=== PATIENT | female | born 1945 | race Caucasian/White ===

== ENCOUNTER 2021-02-22 08:10 | Inpatient (IN) ==
[2021-02-22] MEDS ORDERED: IOPAMIDOL 100 ML BOTTLE IV ONE (08:11)
[2021-02-22] MEDS ORDERED: KETOROLAC 30 MG/ML VIAL IV ONE (08:24)
[2021-02-22] MEDS ORDERED: diphenhydrAMINE 50 MG/ML VIAL IV ONE (08:24)
[2021-02-22] MEDS ORDERED: PROCHLORPERAZINE 10 MG/2 ML VIAL IV ONE (08:24)
[2021-02-22] MEDS ORDERED: 0.9 % SODIUM CHLORIDE 1,000 ML IV ONE (08:24)
--- NOTE | 2021-02-22 08:31 | Emergency Department Note ---
Abdominal Pain HPI General Chief Complaint: Abdominal Pain Stated Complaint: Diverticulitis Time Seen by Provider: 02/22/21 08:14 Source: patient, family ( at bedside), RN notes reviewed and old records reviewed Mode of arrival: ambulatory Limitations: no limitations History of Present Illness HPI Narrative: Narrative: MD Complaint: abdominal pain Onset (ago): day(s) (4) Consistency: constant Location: LLQ Severity: moderate Quality: cramping and aching Radiation: none Migration to: no migration Improves with: nothing Worsens with: movement Context: other (Diverticulitis) Associated symptoms: Reports nausea, vomiting, fever, chills and anorexia; Denies diarrhea, constipation, dysuria, hematemesis, hematochezia, melena, hematuria and syncope Treatments prior to arrival: other (Cipro ) Related Data Home Medications Medication Instructions Recorded Confirmed calcium carbonate 500 mg calcium 500 mg PO QDAY tab 10/23/15 02/22/21 (1,250 mg) tablet cholecalciferol (vitamin D3) 25 1,000 unit PO QDAY 10/23/15 02/22/21 mcg (1,000 unit) capsule multivitamin 1 tab PO QDAY tab 10/23/15 02/22/21 apixaban [Eliquis] 5 mg PO BID 02/22/21 02/22/21 hydrochlorothiazide 25 mg PO PRN PRN 02/22/21 02/22/21 lisinopril 10 mg PO QDAY 02/22/21 02/22/21 metoprolol succinate 125 mg PO QDAY 02/22/21 02/22/21 rosuvastatin 5 mg PO QDAY 02/22/21 02/22/21 Previous Rx's Medication Instructions Recorded albuterol sulfate 8.5 gm IH Q4-6HP PRN #1 hfa.aer.ad 10/10/16 nitroglycerin 0.4 mg sublingual 0.4 mg SUBLINGUAL Q5M PRN #20 tab 12/25/16 tablet ciprofloxacin HCl [Cipro] 500 mg PO Q12H #20 tab 02/20/21 hydrocodone-acetaminophen 1 tab PO Q4H PRN #12 tab 02/20/21 metronidazole 500 mg PO Q12H 10 Days #20 tab 02/20/21 ondansetron 4 mg PO Q6H PRN #12 tab 02/20/21 Allergies Allergy/AdvReac Type Severity Reaction Status Date / Time atenolol Allergy Unknown Unknown Verified 02/22/21 08:10 atorvastatin [From Lipitor] Allergy Unknown Rash Verified 02/22/21 08:10 Dicloxacillin Allergy Unknown Gastrointestinal Verified 02/22/21 08:10 Upset fluvastatin [From Lescol] Allergy Unknown Rash Verified 02/22/21 08:10 isosorbide [From Imdur] Allergy Unknown Headache Verified 02/22/21 08:10 morphine [MORPHINE] Allergy Unknown RASH Verified 02/22/21 08:10 simvastatin [From Zocor] Allergy Unknown Rash Verified 02/22/21 08:10 Vknegnv-VFZ-VfQ Reductase Allergy Unknown Rash Verified 02/22/21 08:10 Inhibitor [Hxaaxju-Xfk-Dbs Reductase Inhibitor] sucralfate [From Carafate] Allergy Unknown Hives Verified 02/22/21 08:10 codeine AdvReac Unknown Other Verified 02/22/21 08:10 nitro transdermal Allergy Unknown Headache Uncoded 12/25/16 08:52 Review of Systems ROS ROS Narrative: Narrative: All systems ED: reviewed and negative except as stated. PFSH Narrative Patient History Narrative: Narrative: Medical/Surgical/Family History All Active Problems (Updated 02/22/21 @ 16:06 by Lcuho Max MD) Abdominal pain (Acute) Diverticulitis (Acute) Diverticulitis (Acute) Nausea & vomiting (Acute) Erythema (Acute) Insect bite (Acute) Cellulitis (Acute) Bronchitis (Acute) Encounter for Health Maintenance Examination in Adult (Chronic) Intermittent abdominal pain (Chronic) Hypercalcemia (Acute) Acute bronchitis (Acute) Upper respiratory infection (Acute) History of hysterectomy (Chronic) History of foot surgery (Chronic) History of esophagogastroduodenoscopy (Chronic 05/26/14) History of coronary artery bypass graft (Chronic) History of colonoscopy (Chronic 04/20/14) History of breast augmentation (Chronic) Weight loss (Chronic) History of tobacco use (Chronic) Tinnitus (Chronic) Ovarian cyst (Chronic) Osteoporosis (Chronic) Low back pain (Chronic) Leg pain (Chronic) Chronic ischemic heart disease (Chronic) Irritable bowel syndrome (Chronic) Hypertension (Chronic) Hyperlipidemia (Chronic) Hormone replacement therapy (Chronic) Headache (Chronic) Gastroesophageal reflux (Chronic 10/17/13) Fracture of metatarsal bone (Chronic 10/07/13) Esophagitis (Chronic) Edema (Chronic) Diverticulosis of colon (Chronic 04/20/14) Coronary artery disease (Chronic) Colon polyps (Chronic) Status of breast implant (Chronic) Asthma (Chronic) Angina pectoris (Chronic) Abnormal mammogram (Chronic) Abdominal pain (Chronic) Contusion (Chronic) Medical History Abdominal pain Evaluation for atypical abdominal pain with normal US and EGD in 07/2010; updated abdominopelvic CT 11/2011 showing benign right ovary cyst and liver granuloma Abnormal mammogram Silicone breast implants with revision in 2004. Abnormal exam on the right suggesting leakage; in need of surgical review. Acute bronchitis Angina pectoris (04/10/14-Dr Carpenter) Asthma Hx of childhood asthma Cellulitis Chronic ischemic heart disease Original internal mammary implant; coronary bypass in 1998. Last major interaction in 02/2011 with stress echo which was normal; last visit with Dr. Carpenter in 02/2012. 02/25/13 normal Stress Echo--Dr. Carpenter. Colon polyps Colonoscopy 10/2004 showing hyperplastic polyp. 10 year sequencing. Contusion Coronary artery disease (04/10/14-Dr Carpenter) Diverticulosis of colon (04/20/14) Dr. Robin Edema Mild; stable on current medication Erythema Esophagitis Component of esophageal spasm; updated EGD 07/2010 showing hiatal hernia and mild esophagitis. Fracture of metatarsal bone (10/07/13) Mildly displaced of the right fifth Gastroesophageal reflux (10/17/13) (07/12/14-[facility]) Headache Vague atypical frontal/temporal headache; check sed rate 07/2012. History of tobacco use Distant ex-smoker; not requiring routine screening. Hormone replacement therapy S/P hysterectomy; ovaries remain, bimanual negative. Patient feels that she needs to maintain ERT. Hypercalcemia Hyperlipidemia Stable on diet; multiple medicine intolerance (statins). Hypertension Mild; stable on current medication. Insect bite Intermittent abdominal pain Irritable bowel syndrome Mild. Updated EGD 07/2010 showing hiatal hernia and mild esophagitis. Leg pain Extensive evaluation for bilateral leg pain in 2005 Low back pain (05/15/2014-Dr Moore) Osteoporosis By bone density; Last screened in 06/2010. Stable Vitamin D level. Plans for IV Boniva. Ovarian cyst Abdominopelvic CT 11/2011 showed benign right ovarian cyst and liver granuloma. Status of breast implant Silicone breast implants with revision in 2004; no mammogram secondary to location of the prosthesis. Abnormal exam 07/2012 on right suggesting leakage, in need of surgical review. Tinnitus Evaluation for pulsatile tinnitus including imaging in 1999 Upper respiratory infection w/ sinusitis/bronchitis [facility] Surgical History History of breast augmentation 2004 Bilateral (07/12/14-[facility]) History of colonoscopy (04/20/14) 04/20/2014: Dr. Robin: Diverticulosis 2004--Hyperplastic polyp and cauterized colonic mucosa. No adenoma. 10 year sequence. History of coronary artery bypass graft 1998 History of esophagogastroduodenoscopy (05/26/14) Dr. Robin: See path report History of foot surgery Neuroma on foot History of hysterectomy ovaries remain; estrogen replacement therapy. Family History Unknown No pertinent family history Social History Smoking Status: Former smoker Alcohol Intake Frequency: a few times a week Substance Use: does not use Exam Narrative Narrative: Narrative: 75-year-old female complaining of abdominal pain. Patient was seen on 02/20 and diagnosed with diverticulitis with a abscess from abdominal CT scan. Received I V fluids pain medicines and placed on Cipro and Flagyl. Patient was seen again yesterday for similar complaints with IV pain medicines and IV fluids. Dr. Poole was consulted at this time. Patient was to follow-up as an outpatient. Patient is having increasing pain is greatest in her left lower quadrant with nausea and vomiting throwing up her antibiotics and pain medicines. Complains of low-grade fevers chills nausea vomiting and abdominal pain. Denies any hematemesis or coffee-ground emesis denies any hematuria dysuria or frequency denies any bright red blood per rectum black tarry stools or diarrhea. Her last meal was at 330-day prior to arrival. Her nausea and vomiting is too many times to count in the last 24 hours. General Limitations: no limitations General appearance: Present alert and in no apparent distress Head Head: Present atraumatic and normocephalic Eye Eye: Present normal appearance, PERRL and EOMI ENT ENT: Present normal exam and mucous membranes moist Neck Neck: Present normal inspection and full ROM Chest Chest: Present normal inspection; Absent tenderness Respiratory Respiratory: Present normal lung sounds bilaterally; Absent respiratory distress Cardiovascular Cardiovascular: Present regular rate and normal rhythm; Absent systolic murmur Adbominal Abdominal: Present soft, tenderness, diminished bowel sounds, bruit and scar; Absent distention, guarding, rebound, rigidity, trauma, Urban's sign, tenderness at McBurney's Point, ascites, mass, pulsatile mass and hernia Extremities Extremities: Present normal inspection and full ROM; Absent tenderness, pedal edema and pretibial edema Back Back: Present normal inspection; Absent CVA tenderness (R) and CVA tenderness (L) Neurological Neurological: Present alert and oriented X3 Psychiatric Psychiatric: Present normal affect and normal mood Skin Skin: Present warm (WNL); Absent rash Course Vital Signs Vital signs: Vital Signs Temperature 97.1 F 02/22/21 08:10 Pulse Rate 78 02/22/21 08:10 Respiratory Rate 16 02/22/21 08:10 Blood Pressure 132/58 02/22/21 08:10 Pulse Oximetry (%) 100 02/22/21 08:10 Temperature 97.1 F 02/22/21 08:10 Pulse Rate 65 02/22/21 16:00 Respiratory Rate 16 02/22/21 08:10 Blood Pressure 111/57 02/22/21 16:00 Pulse Oximetry (%) 95 02/22/21 16:00 [facility] Narrative Medical decision making narrative: Narrative: Patient received IV fluids and IV pain medicines. White count is normal lipase is marginally elevated anion gap is elevated. Patient responded well to IV pain medicines and IV fluids. Differential Diagnosis Differential Diagnosis: Diverticulitis diverticular abscess large bowel obstruction small bowel obs Medical Records Medical records reviewed: Yes I reviewed the patient's medical records. Lab Data Lab results reviewed: Yes I reviewed the patient's lab results. Lab results narrative: Elevated lipase and elevated anion gap normal white count electrolytes BUN/creatinine and LFTs Result diagrams: 02/22/21 08:36 02/22/21 08:36 Labs: Lab Results 02/22/21 02/22/21 02/22/21 Range/Units 08:32 08:36 08:36 WBC 9.0 (4.5-11.0) K/mcL RBC 3.89 (3.59-5.38) M/mcL Hgb 11.9 (11.2-15.7) g/dL Hct 34.8 (34.1-44.9) % MCV 89.5 (80.0-100.0) fL MCH 30.6 (26.0-34.0) pg MCHC 34.2 (31.0-36.0) g/dL RDW 11.5 (11.5-14.5) % Plt Count 270 (140-440) K/mcL MPV 10.0 (7.4-10.4) fL Neut % (Auto) 83.2 H (38.0-78.0) % Lymph % (Auto) 11.6 L (15.5-49.0) % [place] % (Auto) 4.7 (1.0-12.0) % Eos % (Auto) 0.3 (0.0-7.0) % Baso % (Auto) 0.2 (0.0-2.0) % Lymph # (Auto) 1.04 L (1.50-4.80) K/mcL [place] # (Auto) 0.42 (0.10-0.90) K/mcL Eos # (Auto) 0.03 (0.00-0.70) K/mcL Baso # (Auto) 0.02 (0.00-0.30) K/mcL Absolute Neutrophils 7.44 (1.80-8.00) K/mcL VBG Lactic Acid (0.5-2.0) mmol/L Sodium 138 (133-145) mmol/L Potassium 4.1 (3.3-5.1) mmol/L Chloride 100 (96-108) mmol/L Carbon Dioxide 20 L (22-30) mmol/L Anion Gap 18.0 H (8.0-16.0) BUN 17 (8-23) mg/dL Creatinine 0.7 (0.6-1.1) mg/dL POC Creatinine 0.7 (0.6-1.2) mg/dL GFR Calculation 83 Glucose 100 (70-105) mg/dL Calcium 9.7 (8.6-10.4) mg/dL Total Bilirubin 0.6 (0.1-1.0) mg/dL AST 16 (<32) U/L ALT 8 (<40) U/L Alkaline Phosphatase 65 (39-117) U/L Troponin T < 0.01 (<0.03) ng/mL Total Protein 6.4 (5.9-8.4) gm/dL Albumin 3.7 (3.2-5.2) gm/dL Globulin 2.7 (2.2-3.7) gm/dL Albumin/Globulin Ratio 1.4 (1.0-2.3) Lipase 97 H (7-60) U/L 02/22/21 Range/Units 08:36 WBC (4.5-11.0) K/mcL RBC (3.59-5.38) M/mcL Hgb (11.2-15.7) g/dL Hct (34.1-44.9) % MCV (80.0-100.0) fL MCH (26.0-34.0) pg MCHC (31.0-36.0) g/dL RDW (11.5-14.5) % Plt Count (140-440) K/mcL MPV (7.4-10.4) fL Neut % (Auto) (38.0-78.0) % Lymph % (Auto) (15.5-49.0) % [place] % (Auto) (1.0-12.0) % Eos % (Auto) (0.0-7.0) % Baso % (Auto) (0.0-2.0) % Lymph # (Auto) (1.50-4.80) K/mcL [place] # (Auto) (0.10-0.90) K/mcL Eos # (Auto) (0.00-0.70) K/mcL Baso # (Auto) (0.00-0.30) K/mcL Absolute Neutrophils (1.80-8.00) K/mcL VBG Lactic Acid 1.5 (0.5-2.0) mmol/L Sodium (133-145) mmol/L Potassium (3.3-5.1) mmol/L Chloride (96-108) mmol/L Carbon Dioxide (22-30) mmol/L Anion Gap (8.0-16.0) BUN (8-23) mg/dL Creatinine (0.6-1.1) mg/dL POC Creatinine (0.6-1.2) mg/dL GFR Calculation Glucose (70-105) mg/dL Calcium (8.6-10.4) mg/dL Total Bilirubin (0.1-1.0) mg/dL AST (<32) U/L ALT (<40) U/L Alkaline Phosphatase (39-117) U/L Troponin T (<0.03) ng/mL Total Protein (5.9-8.4) gm/dL Albumin (3.2-5.2) gm/dL Globulin (2.2-3.7) gm/dL Albumin/Globulin Ratio (1.0-2.3) Lipase (7-60) U/L ED POC Tests ED POC Tests: ARON - SARS Antigen Negative Radiology Data Radiology results reviewed: Yes I reviewed the patient's radiology results. Radiology results narrative: IMPRESSION: 1. Sigmoid diverticulitis. No evidence of abscess. 2. Moderate ileus with moderate colonic stool. 3. 3.5 cm simple cyst right ovary-stable since 2015. 4. Mild wall thickening distal esophagus suggesting peptic disease or other infiltrative process. Interpreted and Authenticated by: Arnaldo Brady 02/22/21 EKG Data EKG #1: EKG attestation: Yes I reviewed and interpreted this EKG. and Yes There are no EKG findings of acute coronary syndrome EKG shows normal: sinus rhythm Rate: normal (62) Rhythm: NSR [place]/QRS: normal Interpretation: nonspecific ST-T wave changes Pulse Oximetry Data Pulse Ox %: 95 Interpretation: 95% on room air is within normal Discharge Plan Patient/Caregiver Discharge Instructions Pt seen by CONDITIONER TUMBLER/PA only: No Clinical Impression: Diverticulitis, Chronic ischemic heart disease Nausea & vomiting Qualifiers: Vomiting type: unspecified Vomiting Intractability: unspecified Qualified Code(s): R11.2 - Nausea with vomiting, unspecified Patient Disposition: Xfer As Inpt ([facility]) Follow up with: Julia Gupta MD [Primary Care Provider] - Prescriptions: No Action multivitamin tablet 1 tab PO QDAY RF: 0 calcium carbonate [Calcium 500] 500 mg calcium (1,250 mg) tablet 500 mg PO QDAY RF: 0 cholecalciferol (vitamin D3) 1,000 unit capsule 1,000 unit PO QDAY RF: 0 nitroglycerin 0.4 MG tablet, sublingual 0.4 mg SUBLINGUAL Q5M PRN (Reason: Chest Pain) Qty: 20 RF: 3 albuterol sulfate 8.5 GM HFA aerosol inhaler 8.5 gm IH Q4-6HP PRN (Reason: Cough) Qty: 1 RF: 0 ciprofloxacin HCl [Cipro] 500 mg tablet 500 mg PO Q12H Qty: 20 RF: 0 metronidazole 500 mg tablet 500 mg PO Q12H 10 Days Qty: 20 RF: 0 ondansetron 4 mg tablet,disintegrating 4 mg PO Q6H PRN (Reason: nausea and vomiting) Qty: 12 RF: 0 hydrocodone-acetaminophen 5-325 mg tablet 1 tab PO Q4H PRN (Reason: pain) Qty: 12 RF: 0 Eliquis 5 mg Tablet 5 mg PO BID RF: 0 metoprolol succinate 100 mg Tablet Extended Release 24 Hr 125 mg PO QDAY RF: 0 lisinopril 10 mg Tablet 10 mg PO QDAY RF: 0 hydrochlorothiazide 25 mg Tablet 25 mg PO PRN PRN (Reason: swelling) RF: 0 rosuvastatin 5 mg Tablet 5 mg PO QDAY RF: 0
--- NOTE | 2021-02-22 09:02 | EKG ---
[facility] Test Date: 2021-02-22 Pat Name: Holly Beth Department: ED Room: Gender: Female Cafe Attendant: [facility] : 1945 Requested By: Lucho Max Order Number: [id number] Reading MD: Arnaldo Wall M.D. Measurements Intervals [place] Rate: 62 P: 76 [place]: 160 QRS: 85 QRSD: 78 T: 68 QT: 452 QTc: 459 Interpretive Statements SINUS RHYTHM BORDERLINE RIGHT AXIS DEVIATION BORDERLINE T ABNORMALITIES, ANT-LAT LEADS Electronically Signed On 02-22-2021 9:02:33 PDT by Arnaldo Wall M.D. /store/[email or web address]/[id number]
[2021-02-22 09:04] LABS: POC Creatinine 0.7 mg/dL (0.6-1.2)
[2021-02-22 09:49] LABS: Basophils # (Auto) 0.02 K/mcL (0.00-0.30); Basophils % (Auto) 0.2 % (0.0-2.0); Eosinophils # (Auto) 0.03 K/mcL (0.00-0.70); Eosinophils % (Auto) 0.3 % (0.0-7.0); Hematocrit 34.8 % (34.1-44.9); Hemoglobin 11.9 g/dL (11.2-15.7); Lymphocytes # (Auto) 1.04 K/mcL (1.50-4.80); Lymphocytes % (Auto) 11.6 % (15.5-49.0); Mean Cell Volume 89.5 fL (80.0-100.0); Mean Corpuscular HGB Conc 34.2 g/dL (31.0-36.0); Monocytes # (Auto) 0.42 K/mcL (0.10-0.90); Monocytes % (Auto) 4.7 % (1.0-12.0); Neutrophils % (Auto) 83.2 % (38.0-78.0); Platelet Count 270 K/mcL (140-440); RBC 3.89 M/mcL (3.59-5.38); Red Cell Distribution Width 11.5 % (11.5-14.5)
[2021-02-22 10:15] LABS: ALT/SGPT 8 U/L (<40); AST/SGOT 16 U/L (<32); Albumin 3.7 gm/dL (3.2-5.2); Albumin/Globulin Ratio 1.4 (1.0-2.3); Alkaline Phosphatase 65 U/L (39-117); Bilirubin,Total 0.6 mg/dL (0.1-1.0); Blood Urea Nitrogen 17 mg/dL (8-23); Calcium 9.7 mg/dL (8.6-10.4); Carbon Dioxide 20 mmol/L (22-30); Chloride 100 mmol/L (96-108); Globulin 2.7 gm/dL (2.2-3.7); Glomerular Filtration Rate 83; Glucose 100 mg/dL (70-105)
--- NOTE | 2021-02-22 15:40 | Cat Scan Report ---
CLINICAL INFORMATION: Left lower quadrant pain. History of diverticulitis COMPARISON: Abdomen and pelvic CT 02/20/2021 TECHNIQUE: Following enteric contrast, 80 cc of Isovue-370 were injected intravenously, and 60 seconds later, 0.625 mm helical slices were obtained from the mid heart through the subtrochanteric regions. Following reconstruction, 2.5 mm sagittal, coronal and axial reformatted images were processed and reviewed at bone, lung and soft tissue windows. Five minutes later, 0.625 mm helical slices were obtained from the mid heart through the kidneys and viewed at soft tissue windows.The exam was performed using radiation dose optimization techniques including, but not limited to, automated exposure control, adjustment of the mA and/or kV according to patient size and use of iterative reconstruction technique. FINDINGS: Lung bases to minor scarring in the medial and anterior basilar segment left lower lobe lobe. No effusions. The visualized heart is moderately enlarged. Mild wall thickening distal esophagus suggesting peptic disease or other infiltrative process Abdominal images show minimal fatty change within the liver which are stable. 9 mm densely calcified granulomas subdiaphragmatic right hepatic lobe is unchanged from 2016. No significant hepatic lesion. The gallbladder is normal. Common bile duct is mildly dilated-8 mm with smooth tapering near the ampullary region. Focal ectasia of [place] pancreatic duct duct, in the inferior pancreatic head, is unchanged. Santorini pancreatic duct is slightly dilated 3 mm but is stable since 2016. Pancreatic parenchyma is otherwise normal. Both kidneys, adrenalglands, spleen are normal. The aorta is normal diameter with moderate fibrofatty calcific plaque. Celiac SMA BRI renal iliac arteries are normal in caliber Pelvic images show hysterectomy changes. A 3.5 cm simple cyst, in the right ovary, is unchanged. Severe diverticulitis is seen in the distal 10 cm of the sigmoid colon unchanged. Today's examination was repeated following additional enteric contrast and delayed images through the pelvis. This was performed to better assess a possible and abscess the anterior wall of the distal sigmoid colon. In this region, there is a 3.6 cm area of marked eccentric plain wall thickening surrounds an inflamed giant diverticulum. There is no definite evidence of abscess in this area The remaining colon small bowel and large bowel show mild symmetric dilatation patible with moderate ileus. Mild concentric wall thickening of the gastric antrum is unchanged from 2016 and presumably insignificant.. There is no free air, free fluid or adenopathy. Bone windows show no osseous abnormality. IMPRESSION: 1. Sigmoid diverticulitis. No evidence of abscess. 2. Moderate ileus with moderate colonic stool. 3. 3.5 cm simple cyst right ovary-stable since 2016. 4. Mild wall thickening distal esophagus suggesting peptic disease or other infiltrative process. Interpreted and Authenticated by: Arnaldo Brady 02/22/21
[2021-02-22] MEDS ORDERED: CIPROFLOXACIN 400 MG/200 ML BAG IV ONE (15:51)
[2021-02-22] MEDS ORDERED: metroNIDAZOLE 500 MG/100 ML BAG IV ONE (15:51)
--- NOTE | 2021-02-22 17:09 | Internal Med History&Physical ---
HPI History of Present Illness Patient information: Note initiated : 02/22/21 at 5:03 pm Service Date, if different from initiated Date: [] Patient: Holly Beth a 75 y/o F admitted on for Diverticulitis. Chief Complaint: [] History of present illness: Ms. Beth is a 75 year old F Presents the ED with sharp abdominal pain lower quadrants especially left as well as nausea vomiting. And bloody stool. Patient came to hospital several days ago for the same symptoms found have an abscess on CT. Case discussed with surgeon who directed ER to provide antibiotics and to follow-up with him in the office. She is seem to be doing well until today when she developed bloody stool again nausea vomiting sharp abdominal pain. She has not been able to keep her Cipro and Flagyl down. Dr. Poole was contacted. Review of Systems: Pertinent positives as above. Denies headache/fever/chills/chest pain/cough/dyspnea. Remaining 10 point review of system reviewed negative PFSH PFSH All Active Problems (Updated 02/22/21 @ 16:06 by Lucho Max MD) Abdominal pain (Acute) Diverticulitis (Acute) Diverticulitis (Acute) Nausea & vomiting (Acute) Erythema (Acute) Insect bite (Acute) Cellulitis (Acute) Bronchitis (Acute) Encounter for Health Maintenance Examination in Adult (Chronic) Intermittent abdominal pain (Chronic) Hypercalcemia (Acute) Acute bronchitis (Acute) Upper respiratory infection (Acute) History of hysterectomy (Chronic) History of foot surgery (Chronic) History of esophagogastroduodenoscopy (Chronic 05/26/14) History of coronary artery bypass graft (Chronic) History of colonoscopy (Chronic 04/20/14) History of breast augmentation (Chronic) Weight loss (Chronic) History of tobacco use (Chronic) Tinnitus (Chronic) Ovarian cyst (Chronic) Osteoporosis (Chronic) Low back pain (Chronic) Leg pain (Chronic) Chronic ischemic heart disease (Chronic) Irritable bowel syndrome (Chronic) Hypertension (Chronic) Hyperlipidemia (Chronic) Hormone replacement therapy (Chronic) Headache (Chronic) Gastroesophageal reflux (Chronic 10/17/13) Fracture of metatarsal bone (Chronic 10/07/13) Esophagitis (Chronic) Edema (Chronic) Diverticulosis of colon (Chronic 04/20/14) Coronary artery disease (Chronic) Colon polyps (Chronic) Status of breast implant (Chronic) Asthma (Chronic) Angina pectoris (Chronic) Abnormal mammogram (Chronic) Abdominal pain (Chronic) Contusion (Chronic) Medical History Abdominal pain Evaluation for atypical abdominal pain with normal US and EGD in 07/2010; updated abdominopelvic CT 11/2011 showing benign right ovary cyst and liver granuloma Abnormal mammogram Silicone breast implants with revision in 2004. Abnormal exam on the right suggesting leakage; in need of surgical review. Acute bronchitis Angina pectoris (04/10/14-Dr Carpenter) Asthma Hx of childhood asthma Cellulitis Chronic ischemic heart disease Original internal mammary implant; coronary bypass in 1998. Last major interaction in 02/2011 with stress echo which was normal; last visit with Dr. Carpenter in 02/2012. 02/25/13 normal Stress Echo--Dr. Carpenter. Colon polyps Colonoscopy 10/2004 showing hyperplastic polyp. 10 year sequencing. Contusion Coronary artery disease (04/10/14-Dr Carpenter) Diverticulosis of colon (04/20/14) Dr. Robin Edema Mild; stable on current medication Erythema Esophagitis Component of esophageal spasm; updated EGD 07/2010 showing hiatal hernia and mild esophagitis. Fracture of metatarsal bone (10/07/13) Mildly displaced of the right fifth Gastroesophageal reflux (10/17/13) (07/12/14-[facility]) Headache Vague atypical frontal/temporal headache; check sed rate 07/2012. History of tobacco use Distant ex-smoker; not requiring routine screening. Hormone replacement therapy S/P hysterectomy; ovaries remain, bimanual negative. Patient feels that she needs to maintain ERT. Hypercalcemia Hyperlipidemia Stable on diet; multiple medicine intolerance (statins). Hypertension Mild; stable on current medication. Insect bite Intermittent abdominal pain Irritable bowel syndrome Mild. Updated EGD 07/2010 showing hiatal hernia and mild esophagitis. Leg pain Extensive evaluation for bilateral leg pain in 2005 Low back pain (05/15/2014-Dr Moore) Osteoporosis By bone density; Last screened in 06/2010. Stable Vitamin D level. Plans for IV Boniva. Ovarian cyst Abdominopelvic CT 11/2011 showed benign right ovarian cyst and liver granuloma. Status of breast implant Silicone breast implants with revision in 2004; no mammogram secondary to location of the prosthesis. Abnormal exam 07/2012 on right suggesting leakage, in need of surgical review. Tinnitus Evaluation for pulsatile tinnitus including imaging in 1999 Upper respiratory infection w/ sinusitis/bronchitis Weight loss (07/12/14-[facility]) Surgical History History of breast augmentation 2004 Bilateral (07/12/14-[facility]) History of colonoscopy (04/20/14) 04/20/2014: Dr. Robin: Diverticulosis 2004--Hyperplastic polyp and cauterized colonic mucosa. No adenoma. 10 year sequence. History of coronary artery bypass graft 1998 History of esophagogastroduodenoscopy (05/26/14) Dr. Robin: See path report History of foot surgery Neuroma on foot History of hysterectomy ovaries remain; estrogen replacement therapy. Family History Unknown No pertinent family history Social History household members: spouse housing: house lives independently: Yes marital status: occupational status: retired alcohol intake frequency: a few times a week substance use type: does not use MEDS/ALLERGIES Home Medications and Allergies Home Medications Medication Instructions Recorded Confirmed Type calcium carbonate 500 mg calcium 500 mg PO QDAY tab 10/23/15 02/22/21 History (1,250 mg) tablet cholecalciferol (vitamin D3) 25 1,000 unit PO QDAY 10/23/15 02/22/21 History mcg (1,000 unit) capsule multivitamin 1 tab PO QDAY tab 10/23/15 02/22/21 History albuterol sulfate 8.5 gm IH Q4-6HP PRN #1 hfa.aer.ad 10/10/16 02/22/21 Rx nitroglycerin 0.4 mg sublingual 0.4 mg SUBLINGUAL Q5M PRN #20 tab 12/25/16 02/22/21 Rx tablet ciprofloxacin HCl [Cipro] 500 mg PO Q12H #20 tab 02/20/21 02/22/21 Rx hydrocodone-acetaminophen 1 tab PO Q4H PRN #12 tab 02/20/21 02/22/21 Rx metronidazole 500 mg PO Q12H 10 Days #20 tab 02/20/21 02/22/21 Rx ondansetron 4 mg PO Q6H PRN #12 tab 02/20/21 02/22/21 Rx apixaban [Eliquis] 5 mg PO BID 02/22/21 02/22/21 History hydrochlorothiazide 25 mg PO PRN PRN 02/22/21 02/22/21 History lisinopril 10 mg PO QDAY 02/22/21 02/22/21 History metoprolol succinate 125 mg PO QDAY 02/22/21 02/22/21 History rosuvastatin 5 mg PO QDAY 02/22/21 02/22/21 History Allergies Allergy/AdvReac Type Severity Reaction Status Date / Time atenolol Allergy Unknown Unknown Verified 02/22/21 08:10 atorvastatin [From Lipitor] Allergy Unknown Rash Verified 02/22/21 08:10 Dicloxacillin Allergy Unknown Gastrointestinal Verified 02/22/21 08:10 Upset fluvastatin [From Lescol] Allergy Unknown Rash Verified 02/22/21 08:10 isosorbide [From Imdur] Allergy Unknown Headache Verified 02/22/21 08:10 morphine [MORPHINE] Allergy Unknown RASH Verified 02/22/21 08:10 simvastatin [From Zocor] Allergy Unknown Rash Verified 02/22/21 08:10 Oocfjnz-EOG-ZhD Reductase Allergy Unknown Rash Verified 02/22/21 08:10 Inhibitor [Ttdnsvl-Aig-Hcn Reductase Inhibitor] sucralfate [From Carafate] Allergy Unknown Hives Verified 02/22/21 08:10 codeine AdvReac Unknown Other Verified 02/22/21 08:10 nitro transdermal Allergy Unknown Headache Uncoded 12/25/16 08:52 EXAM Constitutional Vitals: Temp Pulse Resp BP Pulse Ox 97.1 F 65 16 111/57 95 02/22/21 08:10 02/22/21 16:00 02/22/21 08:10 02/22/21 16:00 02/22/21 16:00 Exam: General: Alert, Awake, No acute Distress Eyes/N/T: EOMI, PERRL, Head/Neck: neck supple, normocephalic atraumatic CV: RRR, No murmurs, normal s1/s2 Pulm: Clear b/l, no wheezing/rhonchi/rales Abd: soft, TTP LLQ, +BS x4 Ext: no clubbing/cyanosis/edema Neuro: Alert, no focal deficits, moves all extremities, CN 2-12 grossly intact, symmetrical strength b/l upper/lower, sensations intact b/l upper/lower Skin: warm/dry DATA Data Completed and Pending Labs: Labs from last 24 hours 02/22/21 02/22/21 02/22/21 08:36 08:36 08:36 WBC 9.0 RBC 3.89 Hgb 11.9 Hct 34.8 MCV 89.5 MCH 30.6 MCHC 34.2 RDW 11.5 Plt Count 270 MPV 10.0 Neut % (Auto) 83.2 H Lymph % (Auto) 11.6 L Meade % (Auto) 4.7 Eos % (Auto) 0.3 Baso % (Auto) 0.2 Lymph # (Auto) 1.04 L Meade # (Auto) 0.42 Eos # (Auto) 0.03 Baso # (Auto) 0.02 Absolute Neutrophils 7.44 VBG Lactic Acid 1.5 Sodium 138 Potassium 4.1 Chloride 100 Carbon Dioxide 20 L Anion Gap 18.0 H BUN 17 Creatinine 0.7 POC Creatinine 0.7 GFR Calculation 83 Glucose 100 Calcium 9.7 Total Bilirubin 0.6 AST 16 ALT 8 Alkaline Phosphatase 65 Troponin T Total Protein 6.4 Albumin 3.7 Globulin 2.7 Albumin/Globulin Ratio 1.4 Lipase 97 H 02/22/21 08:32 WBC RBC Hgb Hct MCV MCH MCHC RDW Plt Count MPV Neut % (Auto) Lymph % (Auto) Meade % (Auto) Eos % (Auto) Baso % (Auto) Lymph # (Auto) Meade # (Auto) Eos # (Auto) Baso # (Auto) Absolute Neutrophils VBG Lactic Acid Sodium Potassium Chloride Carbon Dioxide Anion Gap BUN Creatinine POC Creatinine GFR Calculation Glucose Calcium Total Bilirubin AST ALT Alkaline Phosphatase Troponin T < 0.01 Total Protein Albumin Globulin Albumin/Globulin Ratio Lipase A/P Narrative A/P Narrative: A: *Acute diverticulitis: *h/o CAD w/cabg: *PAF: on eliquis/BB *HTN/HLD: P: -Dr. Poole following -IV Abx -Clear liquid, IVF -pain control/antiemetics -cont BB/ACEI, hold hctz - -ppx: heparin (hold Eliquis until seen by surgeon) Time Spent With Patient Time: Total time spent is greater than 50% in coordination of care (as documented) at patient's floor/unit and/or counseling patient:
--- NOTE | 2021-02-22 17:19 | General Surgery Consult Note ---
HPI Data of Consult Patient: new to practice Consult date: 02/22/21 Primary Care Provider: Julia Gupta Consult Narrative History of present illness: This is a pleasant 75-year-old female who presents to the emergency department 2 days ago with history of left lower quadrant abdominal pain. She was seen and evaluated emergency room diagnosed with diverticulitis, she had normal white count no fevers chills nausea or vomiting. She was placed on oral antibiotics and sent home. She represented the next day because her primary care doc was worried about the findings on the CT scan, reevaluation showed a normal white count afebrile with no nausea or vomiting. She represents today secondary to nausea with emesis and unable to tolerate p.o. intake. Upon reevaluation the emergency room repeat CT scan shows that the colitis, no evidence of perforation or abscess. She has nausea with emesis she has no fevers or chills. She reports that her abdominal pain feels better than it did 2 days ago minus the nausea. I was asked to reevaluate the patient for possible surgical intervention. cc:: CC: Review of Systems Review of systems: All systems are reviewed negative other than above PFSH PFSH All Active Problems Abdominal pain (Acute) Diverticulitis (Acute) Diverticulitis (Acute) Nausea & vomiting (Acute) Erythema (Acute) Insect bite (Acute) Cellulitis (Acute) Bronchitis (Acute) Encounter for Health Maintenance Examination in Adult (Chronic) Intermittent abdominal pain (Chronic) Hypercalcemia (Acute) Acute bronchitis (Acute) Upper respiratory infection (Acute) History of hysterectomy (Chronic) History of foot surgery (Chronic) History of esophagogastroduodenoscopy (Chronic 05/26/14) History of coronary artery bypass graft (Chronic) History of colonoscopy (Chronic 04/20/14) History of breast augmentation (Chronic) Weight loss (Chronic) History of tobacco use (Chronic) Tinnitus (Chronic) Ovarian cyst (Chronic) Osteoporosis (Chronic) Low back pain (Chronic) Leg pain (Chronic) Chronic ischemic heart disease (Chronic) Irritable bowel syndrome (Chronic) Hypertension (Chronic) Hyperlipidemia (Chronic) Hormone replacement therapy (Chronic) Headache (Chronic) Gastroesophageal reflux (Chronic 10/17/13) Fracture of metatarsal bone (Chronic 10/07/13) Esophagitis (Chronic) Edema (Chronic) Diverticulosis of colon (Chronic 04/20/14) Coronary artery disease (Chronic) Colon polyps (Chronic) Status of breast implant (Chronic) Asthma (Chronic) Angina pectoris (Chronic) Abnormal mammogram (Chronic) Abdominal pain (Chronic) Contusion (Chronic) Medical History Abdominal pain Evaluation for atypical abdominal pain with normal US and EGD in 07/2010; updated abdominopelvic CT 11/2011 showing benign right ovary cyst and liver granuloma Abnormal mammogram Silicone breast implants with revision in 2004. Abnormal exam on the right suggesting leakage; in need of surgical review. Acute bronchitis Angina pectoris (04/10/14-Dr Carpenter) Asthma Hx of childhood asthma Cellulitis Chronic ischemic heart disease Original internal mammary implant; coronary bypass in 1998. Last major interaction in 02/2011 with stress echo which was normal; last visit with Dr. Carpenter in 02/2012. 02/25/13 normal Stress Echo--Dr. Carpenter. Colon polyps Colonoscopy 10/2004 showing hyperplastic polyp. 10 year sequencing. Contusion Coronary artery disease (04/10/14-Dr Carpenter) Diverticulosis of colon (04/20/14) Dr. Robin Edema Mild; stable on current medication Erythema Esophagitis Component of esophageal spasm; updated EGD 07/2010 showing hiatal hernia and mild esophagitis. Fracture of metatarsal bone (10/07/13) Mildly displaced of the right fifth Gastroesophageal reflux (10/17/13) (07/12/14-[facility]) Headache Vague atypical frontal/temporal headache; check sed rate 07/2012. History of tobacco use Distant ex-smoker; not requiring routine screening. Hormone replacement therapy S/P hysterectomy; ovaries remain, bimanual negative. Patient feels that she needs to maintain ERT. Hypercalcemia Hyperlipidemia Stable on diet; multiple medicine intolerance (statins). Hypertension Mild; stable on current medication. Insect bite Intermittent abdominal pain Irritable bowel syndrome Mild. Updated EGD 07/2010 showing hiatal hernia and mild esophagitis. Leg pain Extensive evaluation for bilateral leg pain in 2005 Low back pain (05/15/2014-Dr Moore) Osteoporosis By bone density; Last screened in 06/2010. Stable Vitamin D level. Plans for IV Boniva. Ovarian cyst Abdominopelvic CT 11/2011 showed benign right ovarian cyst and liver granuloma. Status of breast implant Silicone breast implants with revision in 2004; no mammogram secondary to location of the prosthesis. Abnormal exam 07/2012 on right suggesting leakage, in need of surgical review. Tinnitus Evaluation for pulsatile tinnitus including imaging in 1999 Upper respiratory infection w/ sinusitis/bronchitis Weight loss (07/12/14-) Surgical History History of breast augmentation 2004 Bilateral (07/12/14-[facility]) History of colonoscopy (04/20/14) 04/20/2014: Dr. Robin: Diverticulosis 2004--Hyperplastic polyp and cauterized colonic mucosa. No adenoma. 10 year sequence. History of coronary artery bypass graft 1998 History of esophagogastroduodenoscopy (05/26/14) Dr. Robin: See path report History of foot surgery Neuroma on foot History of hysterectomy ovaries remain; estrogen replacement therapy. Family History Unknown No pertinent family history Social History household members: spouse housing: house lives independently: Yes marital status: occupational status: retired alcohol intake frequency: a few times a week substance use type: does not use MEDS/ALLERGIES Home Medications and Allergies Home Medications Medication Instructions Recorded Confirmed Type calcium carbonate 500 mg calcium 500 mg PO QDAY tab 10/23/15 02/22/21 History (1,250 mg) tablet cholecalciferol (vitamin D3) 25 1,000 unit PO QDAY 10/23/15 02/22/21 History mcg (1,000 unit) capsule multivitamin 1 tab PO QDAY tab 10/23/15 02/22/21 History albuterol sulfate 8.5 gm IH Q4-6HP PRN #1 hfa.aer.ad 10/10/16 02/22/21 Rx nitroglycerin 0.4 mg sublingual 0.4 mg SUBLINGUAL Q5M PRN #20 tab 12/25/16 02/22/21 Rx tablet ciprofloxacin HCl [Cipro] 500 mg PO Q12H #20 tab 02/20/21 02/22/21 Rx hydrocodone-acetaminophen 1 tab PO Q4H PRN #12 tab 02/20/21 02/22/21 Rx metronidazole 500 mg PO Q12H 10 Days #20 tab 02/20/21 02/22/21 Rx ondansetron 4 mg PO Q6H PRN #12 tab 02/20/21 02/22/21 Rx apixaban [Eliquis] 5 mg PO BID 02/22/21 02/22/21 History hydrochlorothiazide 25 mg PO PRN PRN 02/22/21 02/22/21 History lisinopril 10 mg PO QDAY 02/22/21 02/22/21 History metoprolol succinate 125 mg PO QDAY 02/22/21 02/22/21 History rosuvastatin 5 mg PO QDAY 02/22/21 02/22/21 History Allergies Allergy/AdvReac Type Severity Reaction Status Date / Time atenolol Allergy Unknown Unknown Verified 02/22/21 08:10 atorvastatin [From Lipitor] Allergy Unknown Rash Verified 02/22/21 08:10 Dicloxacillin Allergy Unknown Gastrointestinal Verified 02/22/21 08:10 Upset fluvastatin [From Lescol] Allergy Unknown Rash Verified 02/22/21 08:10 isosorbide [From Imdur] Allergy Unknown Headache Verified 02/22/21 08:10 morphine [MORPHINE] Allergy Unknown RASH Verified 02/22/21 08:10 simvastatin [From Zocor] Allergy Unknown Rash Verified 02/22/21 08:10 Gldbwqn-SIX-BgQ Reductase Allergy Unknown Rash Verified 02/22/21 08:10 Inhibitor [Rarbxut-Awt-Oos Reductase Inhibitor] sucralfate [From Carafate] Allergy Unknown Hives Verified 02/22/21 08:10 codeine AdvReac Unknown Other Verified 02/22/21 08:10 nitro transdermal Allergy Unknown Headache Uncoded 12/25/16 08:52 Physical Examination Vital Signs Vital signs: Temp Pulse Resp BP Pulse Ox 97.1 F 65 16 111/57 95 02/22/21 08:10 02/22/21 16:00 02/22/21 08:10 02/22/21 16:00 02/22/21 16:00 General physical appearance General physical exam: well developed, well nourished and no distress Eyes Eye exam: PERRL and normal ocular movement ENT ENT exam: normal pinna, normal nares, normal mucosa, no hearing loss and no congestion Head Head exam IM: Present atraumatic and normocephalic Neck Neck exam: no masses, no bruits, trachea midline, no lymphadenopathy and no venous distension Cardiovascular Cardiovascular exam IM: Present normal rate and rhythm Respiratory Respiratory exam: normal expansion, normal respiratory effort, clear to percussion and clear to auscultation Abdomen Abdomen: Present soft, non tender and bowel sounds; Absent masses, guarding and rigid Hernia: Present none Genitourinary Genitourinary (Female): Present normal external genitalia Rectum Rectum: Present normal sphincter tone, no hemorrhoids, no tenderness, no masses and no bleeding Integumentary Integumentary: Present no rash, no growths and no abnormal pigmentation Neurologic Neurologic: Present normal coordination and normal sensation Musculoskeletal Musculoskeletal: Present normal gait and normal posture Psychiatric Psychiatric: Present oriented to time, oriented to person, oriented to place, speech is normal and memory intact Results Labs Result diagrams: 02/22/21 08:36 02/22/21 08:36 Labs: Abnormal lab results 02/22/21 02/22/21 Range/Units 08:36 08:36 Neut % (Auto) 83.2 H (38.0-78.0) % Lymph % (Auto) 11.6 L (15.5-49.0) % Lymph # (Auto) 1.04 L (1.50-4.80) K/mcL Carbon Dioxide 20 L (22-30) mmol/L Anion Gap 18.0 H (8.0-16.0) Lipase 97 H (7-60) U/L Diabetes panel 02/22/21 Range/Units 08:36 Sodium 138 (133-145) mmol/L Potassium 4.1 (3.3-5.1) mmol/L Chloride 100 (96-108) mmol/L Carbon Dioxide 20 L (22-30) mmol/L BUN 17 (8-23) mg/dL Creatinine 0.7 (0.6-1.1) mg/dL Glucose 100 (70-105) mg/dL Calcium 9.7 (8.6-10.4) mg/dL AST 16 (<32) U/L ALT 8 (<40) U/L Alkaline Phosphatase 65 (39-117) U/L Total Protein 6.4 (5.9-8.4) gm/dL Albumin 3.7 (3.2-5.2) gm/dL Calcium panel 10/22/21 Range/Units 08:36 Calcium 9.7 (8.6-10.4) mg/dL Albumin 3.7 (3.2-5.2) gm/dL Pituitary panel 02/22/21 Range/Units 08:36 Sodium 138 (133-145) mmol/L Potassium 4.1 (3.3-5.1) mmol/L Chloride 100 (96-108) mmol/L Carbon Dioxide 20 L (22-30) mmol/L BUN 17 (8-23) mg/dL Creatinine 0.7 (0.6-1.1) mg/dL Glucose 100 (70-105) mg/dL Calcium 9.7 (8.6-10.4) mg/dL Adrenal panel 02/22/21 Range/Units 08:36 Sodium 138 (133-145) mmol/L Potassium 4.1 (3.3-5.1) mmol/L Chloride 100 (96-108) mmol/L Carbon Dioxide 20 L (22-30) mmol/L BUN 17 (8-23) mg/dL Creatinine 0.7 (0.6-1.1) mg/dL Glucose 100 (70-105) mg/dL Calcium 9.7 (8.6-10.4) mg/dL Total Bilirubin 0.6 (0.1-1.0) mg/dL AST 16 (<32) U/L ALT 8 (<40) U/L Alkaline Phosphatase 65 (39-117) U/L Total Protein 6.4 (5.9-8.4) gm/dL Albumin 3.7 (3.2-5.2) gm/dL All other labs normal. Imaging CT scan - abdomen: other (CT scan reviewed, independently interpreted by myself. Diverticulitis, mild ileus, no evidence for perforation or abscess) A/P Assessment and plan (1) Diverticulitis: Status: Acute (2) Abdominal pain: Status: Acute Qualifiers: Abdominal location: generalized Qualified Code(s): R10.84 - Generalized abdominal pain (3) Nausea & vomiting: Status: Acute Qualifiers: Vomiting Intractability: unspecified Vomiting type: unspecified Qualified Code(s): R11.2 - Nausea with vomiting, unspecified (4) History of coronary artery bypass graft: Status: Chronic Comment: 1999 Narrative A/P Narrative: This is a pleasant 75-year-old female who presents with nausea and emesis secondary to diverticulitis. She has no evidence of perforation or abscess formation. There are no immediate need for surgical intervention. Secondary to nausea she will need to be admitted, placed n.p.o. and placed on IV antibiotics until return of bowel function. She is clear to take all home medication with sips of clears. Thank you very much for this consultation, I will continue to follow the patient with you. Time Spent With Patient Time: Total time spent is greater than 50% in coordination of care (as documented) at patient's floor/unit and/or counseling patient:
[2021-02-22] MEDS ORDERED: ONDANSETRON 4 MG/2 ML VIAL IV PRN (19:02)
[2021-02-22] MEDS ORDERED: IPRATROPIUM/ALBUTEROL 3 ML AMPUL.NEB NEB PRN (19:02)
[2021-02-22] MEDS ORDERED: MAGNESIUM SULFATE 2 GM/50 ML BAG IV PRN (19:02)
[2021-02-22] MEDS ORDERED: HYDROcodone/APAP (PP) 5/325MG TABLET (#4) PO PRN (19:02)
[2021-02-22] MEDS ORDERED: POTASSIUM CHLORIDE 20 MEQ TABLET PO PRN ×2 (19:02)
[2021-02-22] MEDS ORDERED: 0.9 % SODIUM CHLORIDE 1,000 ML IV SCH (19:02)
[2021-02-22] MEDS ORDERED: POTASSIUM CHLORIDE 40 MEQ in DEXTROSE 5% IN WATER 500 ML IV PRN (19:02)
[2021-02-22] MEDS ORDERED: NITROGLYCERIN 0.4 MG TAB.SUBL SL PRN (19:15)
[2021-02-22] MEDS ORDERED: HYDROcodone/APAP 5/325MG TABLET PO PRN (19:17)
[2021-02-22] MEDS: PIPERACILLIN SODIUM/TAZOBACTAM 3.375 GM in DEXTROSE 5% IN WATER 50 ML IV SCH (19:52)
[2021-02-22] MEDS: 0.9 % SODIUM CHLORIDE 10 ML SYRINGE IV SCH (22:12)
[2021-02-23] MEDS: PIPERACILLIN SODIUM/TAZOBACTAM 3.375 GM in DEXTROSE 5% IN WATER 50 ML IV SCH ×5 (01:29→23:49)
[2021-02-23] MEDS: 0.9 % SODIUM CHLORIDE 10 ML SYRINGE IV SCH ×3 (05:52→21:10)
[2021-02-23 07:00] LABS: Basophils # (Auto) 0.03 K/mcL (0.00-0.30); Basophils % (Auto) 0.6 % (0.0-2.0); Eosinophils # (Auto) 0.14 K/mcL (0.00-0.70); Eosinophils % (Auto) 2.7 % (0.0-7.0); Hematocrit 33.9 % (34.1-44.9); Hemoglobin 10.7 g/dL (11.2-15.7); Lymphocytes # (Auto) 1.67 K/mcL (1.50-4.80); Mean Cell Volume 93.9 fL (80.0-100.0); Mean Corpuscular HGB Conc 31.6 g/dL (31.0-36.0); Mean Platelet Volume 9.9 fL (7.4-10.4); Monocytes % (Auto) 9.6 % (1.0-12.0); Neutrophils % (Auto) 55.1 % (38.0-78.0); Platelet Count 237 K/mcL (140-440); RBC 3.61 M/mcL (3.59-5.38); Red Cell Distribution Width 11.6 % (11.5-14.5); WBC 5.2 K/mcL (4.5-11.0)
[2021-02-23 08:11] LABS: ALT/SGPT 7 U/L (<40); AST/SGOT 17 U/L (<32); Albumin 3.1 gm/dL (3.2-5.2); Albumin/Globulin Ratio 1.3 (1.0-2.3); Alkaline Phosphatase 54 U/L (39-117); Bilirubin,Direct < 0.2 mg/dL (0-0.3); Bilirubin,Total 0.4 mg/dL (0.1-1.0); Blood Urea Nitrogen 9 mg/dL (8-23); Calcium 8.9 mg/dL (8.6-10.4); Carbon Dioxide 19 mmol/L (22-30); Chloride 100 mmol/L (96-108); Globulin 2.4 gm/dL (2.2-3.7); Glomerular Filtration Rate 88; Glucose 75 mg/dL (70-105); Lactate Dehydrogenase 167 U/L (135-225); Phosphorous 2.6 mg/dL (2.5-4.5); Triglycerides 74 mg/dL (<150)
--- NOTE | 2021-02-23 08:26 | Internal Med Progress Note ---
SUBJECTIVE Subjective Patient information: Note initiated : 02/23/21 at 8:21 am Service Date, if different from initiated Date: [] Patient: Holly Beth a 75 y/o F admitted on 02/22/21 for Diverticulitis. Chief Complaint: [] Interval history: History of present illness: Ms. Beth is a 75 year old F Presents the ED with sharp abdominal pain lower quadrants especially left as well as nausea vomiting. And bloody stool. Patient came to hospital several days ago for the same symptoms found have an abscess on CT. Case discussed with surgeon who directed ER to provide antibiotics and to follow-up with him in the office. She is seem to be doing well until today when she developed bloody stool again nausea vomiting sharp abdominal pain. She has not been able to keep her Cipro and Flagyl down. Dr. Poole was contacted. 02/23 Tolerating clear liquid diet. Abdominal pain improving today. Continues to tolerate clear liquids may consider full liquid for dinner. No surgery indicated at this time. On prophylactic heparin, if no bloody stools through the day then will start home Eliquis tonight. No gross bloody stools overnight. Review of Systems: denies headache/fever/chills/nausea/vomiting/chest or abdominal pain/cough/dyspnea. Otherwise see above. Constitutional Vitals: Vital Signs Temp Pulse Resp BP Pulse Ox 98.1 F 80 16 111/50 92 02/23/21 06:52 02/23/21 06:52 02/23/21 06:52 02/23/21 06:52 02/23/21 06:52 Period Temp Pulse Resp BP Sys/Sweeney Pulse Ox Last 24 Hr 97.1 F-98.1 F 61-88 16-18 96-134/47-68 92-100 Intake and Output 02/22/21 02/23/21 02/23/21 21:59 05:59 13:59 Intake Total 150 100 200 Balance 150 100 200 Weight 42.638 kg Intake & Output: Intake & Output 02/22/21 02/23/21 02/23/21 21:59 05:59 13:59 Intake Total 150 100 200 Balance 150 100 200 Weight 42.638 kg Intake: IV 150 50 200 Zosyn 3.375 gm In Dextrose 5% 50 50 in Water 50 ml @ 100 mls/hr IV Q6H [facility] Rx#:[id number] Oral 50 Other: Stool Color Blood Tinged Stool Consistency Liquid Liquid # Voids 1 1 # Bowel Movements 1 1 Exam: General: Alert, Awake, No acute Distress Eyes/N/T: EOMI, Head/Neck: neck supple, CV: RRR, No murmurs, Pulm: Clear b/l, no wheezing/rhonchi/rales Abd: soft, TTP LLQ, +BS x4 Ext: no clubbing/cyanosis/edema Neuro: Alert, no focal deficits, moves all extremities, Skin: warm/dry OBJ DATA Labs CBC & Chem 7: 02/23/21 05:18 02/23/21 05:18 Labs: Abnormal Lab Results 02/23/21 02/23/21 02/22/21 05:18 05:18 08:36 Hgb 10.7 L Hct 33.9 L Neut % (Auto) Lymph % (Auto) Lymph # (Auto) Carbon Dioxide 19 L 20 L Anion Gap 18.0 H Total Protein 5.5 L Albumin 3.1 L Lipase 97 H 02/22/21 08:36 Hgb Hct Neut % (Auto) 83.2 H Lymph % (Auto) 11.6 L Lymph # (Auto) 1.04 L Carbon Dioxide Anion Gap Total Protein Albumin Lipase Meds: Medications Hydrocodone Bitart/Acetaminophen (Hydrocodone/Apap 5/325mg Tablet) 1 tab PO Q4HP PRN; Protocol PRN Reason: Per Pain Protocol Albuterol/Ipratropium (Ipratropium/Albuterol 3 Ml Ampul.Neb) 3 ml NEB Q4HP PRN PRN Reason: Shortness Of Breath Heparin Sodium (Porcine) (Heparin 5,000 Unit/Ml Vial) 5,000 unit SQ Q12 [facility] Potassium Chloride 40 meq/ (Dextrose) 520 mls @ 130 mls/hr IV UD PRN PRN Reason: Potassium < 3 Magnesium Sulfate (Magnesium Sulfate) 2 gm in 50 mls @ 50 mls/hr IV UD PRN PRN Reason: Magnesium </= 1.6 Sodium Chloride (Sodium Chloride 0.9%) 1,000 mls @ 50 mls/hr IV .Q20H [facility] Stop: 02/23/21 15:01 Last Admin: 02/22/21 19:51 Dose: 50 mls/hr Documented by: Piperacillin Sod/Tazobactam (Sod 3.375 gm/ Dextrose) 50 mls @ 100 mls/hr IV Q6H [facility]; Protocol Last Infusion: 02/23/21 03:22 Dose: Infused Documented by: Nitroglycerin (Nitroglycerin 0.4 Mg Tab.Subl) 0.4 mg SL Q5M PRN PRN Reason: Chest Pain Ondansetron HCl (Ondansetron 4 Mg/2 Ml Vial) 4 mg IV Q4HP PRN PRN Reason: Nausea And Vomiting Rosuvastatin 5 Mg (Tablet) 1 dose PO QDAY [facility] Potassium Chloride (Potassium Chloride 20 Meq Tablet) 40 meq PO UD PRN PRN Reason: Potssium is 3-3.5 Potassium Chloride (Potassium Chloride 20 Meq Tablet) 40 meq PO UD PRN PRN Reason: Potassium < 3 Sodium Chloride (0.9 % Sodium Chloride 10 Ml Syringe) 10 ml IV Q8 [facility] Last Admin: 02/23/21 05:52 Dose: Not Given Documented by: A/P Narrative A/P Narrative: A: *Acute diverticulitis w/bloody stool: *h/o CAD w/cabg: *PAF: on eliquis/BB *HTN/HLD: P: -Dr. Poole following -IV Abx -Clear liquid advance as tolerated, IVF today d/c -pain control/antiemetics -hold ACEI/hctz for now, cont BB - -ppx: heparin (hold Eliquis for now given bloody stools) Time Spent With Patient Time: Total time spent is greater than 50% in coordination of care (as documente d) at patient's floor/unit and/or counseling patient: [facility] VTE Deep Vein Thrombosis/Pulmonary Embolism Present on Admission: No
[2021-02-23] MEDS: ROSUVASTATIN 5 MG TABLET PO SCH (08:46)
[2021-02-23] MEDS: METOPROLOL SUCCINATE 25 MG TAB.XL.24H PO SCH (08:46)
[2021-02-23] MEDS: HEPARIN 5,000 UNIT/ML VIAL SQ SCH ×2 (08:47→08:54)
--- NOTE | 2021-02-23 10:17 | General Surgery Progress Note ---
SUBJECTIVE Subjective Patient information: Note initiated : 02/23/21 at 10:16 am Service Date, if different from initiated Date: [] Patient: Holly Beth 75 y/o F admitted on 02/22/21 for Diverticulitis. Chief Complaint: [] Interval history: Patient with 2 bowel movements overnight. She reports she feels much better this morning, no further nausea, no emesis. Abdomen with less tenderness. Constitutional Vitals: Vital Signs Temp Pulse Resp BP Pulse Ox 98.1 F 80 16 111/50 92 02/23/21 06:52 02/23/21 06:52 02/23/21 06:52 02/23/21 06:52 02/23/21 06:52 Period Temp Pulse Resp BP Sys/Sweeney Pulse Ox Last 24 Hr 97.1 F-98.1 F 61-88 16-18 96-134/48-68 92-100 Intake and Output 02/22/21 02/23/21 02/23/21 21:59 05:59 13:59 Intake Total 150 100 250 Balance 150 100 250 Weight 94 lb Intake & Output: Intake & Output 02/22/21 02/23/21 02/23/21 21:59 05:59 13:59 Intake Total 150 100 250 Balance 150 100 250 Weight 94 lb Intake: IV 150 50 250 Zosyn 3.375 gm In Dextrose 5% 50 50 50 in Water 50 ml @ 100 mls/hr IV Q6H [facility] Rx#:[id number] Oral 50 Other: Stool Size Moderate Stool Color Blood Tinged Brown Stool Consistency Liquid Liquid Watery Loose # Voids 1 1 1 # Bowel Movements 1 1 1 General appearance: cooperative and no acute distress GI/Abdominal GI/Abdominal exam: Present soft and mass; Absent distended, guarding and tenderness A/P Narrative A/P Narrative: Patient admitted with diverticulitis. Patient has had return of bowel function overnight. Continue with IV antibiotics, will start clear liquid diet. Anticipate home tomorrow. Time Spent With Patient Time: Total time spent is greater than 50% in coordination of care (as documented) at patient's floor/unit and/or counseling patient:
--- NOTE | 2021-02-23 11:07 | Discharge Summary ---
Discharge Provider Provider Patient information: Note initiated : 02/23/21 at 11:06 am Service Date, if different from initiated Date: [] Patient: Holly Beth 75 y/o F admitted on 02/22/21 for Diverticulitis. Chief Complaint: [] Date of admission: 02/22/21 18:25 Discharge date: 02/24/21 Primary care physician: Julia Gupta Consults: 02/22/21 Consult to Physician [CONS] Stat Comment: Consulting Provider: Ryan Rice Reason For Exam: Physician to Consult Consult to Physician [CONS] Stat Comment: Consulting Provider: Benny Poole Reason For Exam: Physician to Consult Discharge Meds Discharge Medications Home Medications calcium carbonate 500 mg calcium (1,250 mg) tablet 500 mg PO QDAY tab 10/23/15 [History Confirmed 02/22/21 Last Taken Unknown] cholecalciferol (vitamin D3) 25 mcg (1,000 unit) capsule 1,000 unit PO QDAY 10/23/15 [History Confirmed 02/22/21 Last Taken Unknown] multivitamin 1 tab PO QDAY tab 10/23/15 [History Confirmed 02/22/21 Last Taken Unknown] albuterol sulfate 8.5 gm IH Q4-6HP PRN #1 hfa.aer.ad 10/10/16 [Rx Confirmed 02/22/21 Last Taken Unknown] nitroglycerin 0.4 mg sublingual tablet 0.4 mg SUBLINGUAL Q5M PRN #20 tab 12/25/16 [Rx Confirmed 02/22/21 Last Taken Unknown] hydrocodone-acetaminophen 1 tab PO Q4H PRN #12 tab 02/20/21 [Rx Confirmed 02/22/21 Last Taken Unknown] ondansetron 4 mg PO Q6H PRN #12 tab 02/20/21 [Rx Confirmed 02/22/21 Last Taken Unknown] Eliquis 5 mg PO BID 02/22/21 [History Confirmed 02/22/21 Last Taken Unknown] ascorbic acid (vitamin C) 500 mg PO QDAY 02/22/21 [History Confirmed 02/22/21 Last Taken Unknown] donepezil 10 mg PO HS 02/22/21 [History Confirmed 02/22/21 Last Taken Unknown] hydrochlorothiazide 25 mg PO PRN PRN 02/22/21 [History Confirmed 02/22/21 Last Taken Unknown] lisinopril 10 mg PO QDAY 02/22/21 [History Confirmed 02/22/21 Last Taken Unknown] magnesium 250 mg PO QDAY 02/22/21 [History Confirmed 02/22/21 Last Taken Unknown] metoprolol succinate 125 mg PO QDAY 02/22/21 [History Confirmed 02/22/21 Last Taken Unknown] rosuvastatin 5 mg PO QDAY 02/22/21 [History Confirmed 02/22/21 Last Taken Unknown] ciprofloxacin HCl [Cipro] 500 mg PO Q12H #10 tab 02/24/21 [Rx Last Taken Unknown] metronidazole 500 mg PO Q12H 10 Days #15 tab 02/24/21 [Rx Last Taken Unknown] COURSE Hospital Course Hospital course: History of present illness: Ms. Beth is a 75 year old F Presents the ED with sharp abdominal pain lower quadrants especially left as well as nausea vomiting. And bloody stool. Patient came to hospital several days ago for the same symptoms found have an abscess on CT. Case discussed with surgeon who directed ER to provide antibiotics and to follow-up with him in the office. She is seem to be doing well until today when she developed bloody stool again nausea vomiting sharp abdominal pain. She has not been able to keep her Cipro and Flagyl down. Dr. Poole was contacted. 02/23 Tolerating clear liquid diet. Abdominal pain improving today. Continues to tolerate clear liquids may consider full liquid for dinner. No surgery indicated at this time. On prophylactic heparin, if no bloody stools through the day then will start home Eliquis tonight. No gross bloody stools overnight. 02/24 Doing well. Ready for discharge. Follow-up with Dr. Poole. A: *Acute diverticulitis w/bloody stool: *h/o CAD w/cabg: *PAF: on eliquis/BB *HTN/HLD: Discharge diagnosis: Acute diverticulitis Secondary discharge diagnosis: CAD paroxysmal A. fib hypertension Time Spent with Patient Time attestation: Total time spent providing and/or coordinating discharge services: Time spent: Greater than 30 minutes EXAM Constitutional Vitals: Temp Pulse Resp BP Pulse Ox 98.1 F 80 16 111/50 92 02/23/21 06:52 02/23/21 06:52 02/23/21 06:52 02/23/21 06:52 02/23/21 06:52 Discharge Data Data Completed and Pending Labs on day of discharge: Labs from last 24 hours 02/23/21 02/23/21 05:18 05:18 WBC 5.2 RBC 3.61 Hgb 10.7 L Hct 33.9 L MCV 93.9 MCH 29.6 MCHC 31.6 RDW 11.6 Plt Count 237 MPV 9.9 Neut % (Auto) 55.1 Lymph % (Auto) 32.0 [place] % (Auto) 9.6 Eos % (Auto) 2.7 Baso % (Auto) 0.6 Lymph # (Auto) 1.67 [place] # (Auto) 0.50 Eos # (Auto) 0.14 Baso # (Auto) 0.03 Absolute Neutrophils 2.88 Sodium 134 Potassium 3.6 Chloride 100 Carbon Dioxide 19 L Anion Gap 15.0 BUN 9 Creatinine 0.6 GFR Calculation 88 Glucose 75 Uric Acid 5.0 Calcium 8.9 Phosphorus 2.6 Magnesium 1.9 Total Bilirubin 0.4 Direct Bilirubin < 0.2 GGT 14 AST 17 ALT 7 Alkaline Phosphatase 54 Lactate Dehydrogenase 167 Total Protein 5.5 L Albumin 3.1 L Globulin 2.4 Albumin/Globulin Ratio 1.3 Triglycerides 74 Discharge Plan Patient/Caregiver Discharge Instructions Activity: increase activity as tolerated Diet: Regular Diet Prescriptions: Continued multivitamin tablet 1 tab PO QDAY RF: 0 calcium carbonate [Calcium 500] 500 mg calcium (1,250 mg) tablet 500 mg PO QDAY RF: 0 cholecalciferol (vitamin D3) 1,000 unit capsule 1,000 unit PO QDAY RF: 0 nitroglycerin 0.4 MG tablet, sublingual 0.4 mg SUBLINGUAL Q5M PRN (Reason: Chest Pain) Qty: 20 RF: 3 albuterol sulfate 8.5 GM HFA aerosol inhaler 8.5 gm IH Q4-6HP PRN (Reason: Cough) Qty: 1 RF: 0 ondansetron 4 mg tablet,disintegrating 4 mg PO Q6H PRN (Reason: nausea and vomiting) Qty: 12 RF: 0 hydrocodone-acetaminophen 5-325 mg tablet 1 tab PO Q4H PRN (Reason: pain) Qty: 12 RF: 0 Eliquis 5 mg Tablet 5 mg PO BID RF: 0 metoprolol succinate 100 mg Tablet Extended Release 24 Hr 125 mg PO QDAY RF: 0 lisinopril 10 mg Tablet 10 mg PO QDAY RF: 0 hydrochlorothiazide 25 mg Tablet 25 mg PO PRN PRN (Reason: swelling) RF: 0 rosuvastatin 5 mg Tablet 5 mg PO QDAY RF: 0 donepezil 10 mg tablet 10 mg PO HS RF: 0 ascorbic acid (vitamin C) 500 mg Tablet 500 mg PO QDAY RF: 0 magnesium 250 mg Tablet 250 mg PO QDAY RF: 0 metronidazole 500 mg tablet 500 mg PO Q12H 10 Days Qty: 15 RF: 0 ciprofloxacin HCl [Cipro] 500 mg tablet 500 mg PO Q12H Qty: 10 RF: 0 Follow Up Plan Follow up with: Julia Gupta MD [Primary Care Provider] - Benny Poole MD [Physician] - Patient Disposition: Home, Self-Care Prognosis: Fair Overall status at discharge: patient is progressing back to baseline Discharge Orders: Discharge Order (Routine); Ordered 02/24/21 Ordered By: Ryan Rice [facility] Deep Vein Thrombosis/Pulmonary Embolism Present on Admission: No
[2021-02-23] MEDS: APIXABAN 5 MG TABLET PO SCH (21:10)
[2021-02-24] MEDS: 0.9 % SODIUM CHLORIDE 10 ML SYRINGE IV SCH (05:55)
[2021-02-24] MEDS: PIPERACILLIN SODIUM/TAZOBACTAM 3.375 GM in DEXTROSE 5% IN WATER 50 ML IV SCH (05:55)
[2021-02-24] MEDS: APIXABAN 5 MG TABLET PO SCH (07:37)
[2021-02-24] MEDS: METOPROLOL SUCCINATE 25 MG TAB.XL.24H PO SCH (07:37)
[2021-02-24] MEDS: ROSUVASTATIN 5 MG TABLET PO SCH (07:37)
--- NOTE | 2021-02-24 10:27 | General Surgery Progress Note ---
SUBJECTIVE Subjective Patient information: Note initiated : 02/24/21 at 10:26 am Service Date, if different from initiated Date: [] Patient: Holly Beth 75 y/o F admitted on 02/22/21 for Diverticulitis. Chief Complaint: [] Interval history: Hospital day #2, patient is doing very well. She is tolerating liquid diet, having bowel movements. Constitutional Vitals: Vital Signs Temp Pulse Resp BP Pulse Ox 97.9 F 66 16 111/60 98 02/24/21 07:35 02/24/21 07:35 02/24/21 07:35 02/24/21 07:35 02/24/21 07:35 Period Temp Pulse Resp BP Sys/Sweeney Pulse Ox Last 24 Hr 97.7 F-98.3 F 61-69 16-18 111-133/50-66 95-98 Intake and Output 02/23/21 02/24/21 02/24/21 21:59 05:59 13:59 Intake Total 1810 50 50 Balance 1810 50 50 Weight 88 lb 11.2 oz Intake & Output: Intake & Output 02/23/21 02/24/21 02/24/21 21:59 05:59 13:59 Intake Total 1810 50 50 Balance 1810 50 50 Weight 88 lb 11.2 oz Intake: IV 1100 50 50 Sodium Chloride 0.9% 1,000 ml @ 1000 50 mls/hr IV .Q20H [facility] Rx#: [id number] Zosyn 3.375 gm In Dextrose 5% 100 50 50 in Water 50 ml @ 100 mls/hr IV Q6H [facility] Rx#:[id number] Oral 710 Other: Meal Dinner Percent of Meal Consumed 100% Urine Appearance Clear Clear Urine Color Bright Yellow Bright Yellow Stool Size Small Small Stool Color Brown Brown Stool Consistency Liquid Watery Watery Loose # Voids 1 1 # Bowel Movements 1 1 General appearance: cooperative and no acute distress GI/Abdominal GI/Abdominal exam: Present soft; Absent distended and guarding A/P Narrative A/P Narrative: Hospital day #2 for IV antibiotics for a sigmoid diverticulitis. Patient is clear for discharge on a low residual diet, p.o. antibiotics. Follow-up with me in 1 to 2 weeks. Time Spent With Patient Time: Total time spent is greater than 50% in coordination of care (as documented) at patient's floor/unit and/or counseling patient:
== END 2021-02-24 11:10 | disposition home or self-care (01) | DRG 379 ==
LOC: ED 08:10 → MEDSUR 18:25
PROVIDERS: ADMIT Internal Medicine; ATTEND Internal Medicine